=== PATIENT | female | born 1965 | race Caucasian/White ===

== ENCOUNTER 2016-12-17 17:58 | Emergency (ER) | payer OTHER ==
[2016-12-17 18:47] VITALS: BP 124/70
[2016-12-17] MEDS ORDERED: Morphine INJ* 2 MG/ML 1 ML SYRINGE IV ONE (19:02)
--- NOTE | 2016-12-25 16:30 | UC ---
Mandie Devlin Alfonso, scribed for Reji Chavarria MD on 12/17/16 at 1859 . Shoulder Pain HPI - HPI Summary HPI Summary: This patient is a 51 year old F presenting to [facility] accompanied by with a chief complaint of left shoulder pain since two days ago. The CC is described as throbbing. The patient rates the pain 10/10 in severity. Symptoms aggravated by movement and position. Symptoms alleviated by nothing. Patient reports left arm numbness and tingling. Patient denies fever, chills, and SOB. She denies known injury. Tobacco abuse disorder. She denies any PMHx. Patients medications reviewed this visit. Patients allergies reviewed this visit. - History of Current Complaint Chief Complaint: UCUpperExtremity Stated Complaint: SHOULDER INJURY Time Seen by Provider: 12/17/16 18:41 Hx Obtained From: Patient Onset/Duration: Sudden Onset, Lasting Days - 2, Still Present Timing: Constant Severity Initially: Severe Severity Currently: Severe Location Of Pain: Is Discrete @ - Left Pain Intensity: 10 Pain Scale Used: 0-10 Numeric Character: Throbbing Aggravating Factor(s): Movement - and position Alleviating Factor(s): Nothing Associated Signs And Symptoms: Positive: Numbness/Tingling - LUE - Allergies/Home Medications Allergies/Adverse Reactions: Allergies Allergy/AdvReac Type Severity Reaction Status Date / Time Tetracycline Allergy Difficulty Verified 12/17/16 20:09 Swallowing Home Medications: Home Medications Levothyroxine TAB* [Synthroid TAB*] 50 mcg PO DAILY 12/17/16 [History Confirmed 12/17/16] Sertraline* [Zoloft*] 100 mg PO DAILY 12/17/16 [History Confirmed 12/17/16] PMH/Surg Hx/FS Hx/Imm Hx Previously Healthy: Yes - Surgical History Surgical History: None - Family History Known Family History: Positive: Other - Ovarian and colon cancer. Epilepsy. - Social History Alcohol Use: Occasionally Substance Use Type: None Smoking Status (MU): Heavy Every Day Tobacco Smoker Review of Systems Constitutional: Other - Negative fever, chills Respiratory: Other - Negative SOB Musculoskeletal: Other: - left shoulder pain, left arm numbness and tingling All Other Systems Reviewed And Are Negative: Yes Physical Exam Triage Information Reviewed: Yes Vital Signs: Initial Vital Signs Temp 98.8 F 12/17/16 18:41 Pulse 64 12/17/16 18:41 Resp 20 12/17/16 18:41 BP 124/70 12/17/16 18:41 Pulse Ox 100 12/17/16 18:41 Vital Signs Reviewed: Yes ENT Exam: Normal Neck exam: Normal Respiratory Exam: Normal Cardiovascular: Positive: RRR, No Murmur Abdomen Description: Positive: Nontender Musculoskeletal: Positive: Strength Intact, No Edema, Other: - no deformity to the left shoulder, no swelling. Range of motion does not seem to make the shoulder pain worse. Neurological: Positive: Alert, Muscle Tone Normal, Other: - she complains of numbness to the left thumb area. Psychological: Positive: Normal Response To Family Skin: Negative: rashes Diagnostics - EKG Cardiac Rate: NL - BPM 61 Cardiac Rhythm: Sinus: Normal - 1858. No STEMI. Shoulder Course/Dx - Course Course Of Treatment: 51 yr old female with left shoulder pain that is not clearly reproducible. It may be musculoskeletal. Her EKG looks OK. She should go to the ER for her 10/10 pain. Morphine given. Discussed with Wale in the ER. - Differential Dx/Diagnosis Provider Diagnoses: left shoulder and neck pain. left thumb numbness. Discharge - Discharge Plan Condition: Good Disposition: TRANS HIGHER LVL OF CARE FAC Patient Education Materials: Shoulder Pain (ED) Referrals: Joanna Dougherty PA [Primary Care Provider] - The documentation as recorded by the Mandie cuellar Alfonso accurately reflects the service I personally performed and the decisions made by , Reji Chavarria MD.
== END 2016-12-17 19:34 | disposition short-term general hospital (02) ==
LOC: UCEAST 17:58
DX: M25.512 Pain in left shoulder (principal); M54.2 Cervicalgia; R20.0 Anesthesia of skin; Z88.1 Allergy status to other antibiotic agents; F17.210 Nicotine dependence, cigarettes, uncomplicated
CPT/HCPCS: 93005; 96374; 99213; G0463; J2270

== ENCOUNTER 2016-12-17 19:54 | Emergency (ER) | payer OTHER ==
[2016-12-17] MEDS ORDERED: Ketorolac INJ* 30 MG/ML 1 ML VIAL IV PUSH ONE (20:11)
[2016-12-17] MEDS ORDERED: LORazepam INJ* 2 MG/ML 1 ML VIAL IV PUSH ONE (20:11)
--- NOTE | 2016-12-17 20:36 | ED ---
Lavelle Devlin Rebecca, scribed for Phill Bauer MD on 12/17/16 at 2013 . Neck Pain - HPI Summary HPI Summary: Pt is a 51 y/o F BIBA from [facility] who presents to ED c/o L-sided neck pain with radiation to the LUE and down the back. Pain has been present for 2 days, beginning upon waking up on Wednesday. Pain is currently severe, ranked 9/10. Treated with Hydrocodone, muscle relaxers and Ibuprofen 800 mg NICKER AND BREAKER. Sx aggravated by nothing, alleviated slightly by morphine and is unchanged by breathing. Additionally c/o nausea which began after morphine administration and slight LUE tingling when she raises it. - History of Current Complaint Chief Complaint: EDNeckComplaint Stated Complaint: LT SHOULDER PAIN Time Seen by Provider: 12/17/16 20:00 Hx Obtained From: Patient Onset/Duration: Started days ago - 2 days ago, Still Present Severity Currently: Severe Pain Intensity: 9 Pain Scale Used: 0-10 Numeric Location: Discrete At: - L-side of the neck, Radiates To: - LUE and down the back Aggravating Factors: Nothing Alleviating Factors: Other: - Slightly by morphine - Allergies/Home Medications Allergies/Adverse Reactions: Allergies Allergy/AdvReac Type Severity Reaction Status Date / Time Tetracycline Allergy Difficulty Verified 12/17/16 20:09 Swallowing PMH/Surg Hx/FS Hx/Imm Hx Endocrine/Hematology History: Reports: Hx Thyroid Disease Denies: Hx Diabetes Cardiovascular History: Denies: Hx Hypertension Respiratory History: Denies: Hx Asthma, Hx Chronic Obstructive Pulmonary Disease (COPD) GI History: Denies: Hx Ulcer Infectious Disease History: Denies: Hx Clostridium Difficile, Hx Hepatitis, Hx Human Immunodeficiency Virus (HIV), Hx of Known/Suspected MRSA, Hx Shingles, Hx Tuberculosis, Hx Known/ Suspected VRE, Hx Known/Suspected VRSA, History Other Infectious Disease, Traveled Outside the [place] in Last 30 Days - Family History Known Family History: Positive: Other - Ovarian CA, colon CA - Social History Alcohol Use: Occasionally Substance Use Type: Reports: None Smoking Status (MU): Heavy Every Day Tobacco Smoker Review of Systems Positive: Nausea - s/p morphine administration Positive: Other - L-sided neck pain with radiation to the LUE and down the back Neurological: Other - LUE tingling when raised All Other Systems Reviewed And Are Negative: Yes Physical Exam Triage Information Reviewed: Yes Vital Signs On Initial Exam: Initial Vitals Temp Pulse Resp BP Pulse Ox 98.3 F 60 18 108/64 99 12/17/16 20:07 12/17/16 20:07 12/17/16 20:07 12/17/16 20:07 12/17/16 20:07 Vital Signs Reviewed: Yes Appearance: Positive: Well-Appearing, Pain Distress - mild discomfort Skin: Positive: Warm Head/Face: Positive: Normal Head/Face Inspection Eyes: Positive: DELMY ENT: Positive: Hearing grossly normal Neck: Positive: Supple, Other: - mild diffuse cervical spasm Respiratory/Lung Sounds: Positive: Clear to Auscultation, Breath Sounds Present Cardiovascular: Positive: RRR Abdomen Description: Positive: Nontender, Soft Bowel Sounds: Positive: Present Musculoskeletal: Positive: Strength/ROM Intact Neurological: Positive: Alert, Oriented to Person Place, Time Diagnostics - Vital Signs Vital Signs Temp Pulse Resp BP Pulse Ox 12/17/16 20:07 98.3 F 60 18 108/64 99 - Laboratory Lab Statement: Any lab studies that have been ordered have been reviewed, and results considered in the medical decision making process. - Radiology C-Spine XR Xray Interpretation: No Acute Changes Radiology Interpretation Completed By: ED Physician Re-Evaluation - Re-Evaluation Second Eval Change: Improved Neck Course/Dx - Course Assessment/Plan: Pt is a 51 y/o F BIBA from [facility] who presents to ED c/o L- sided neck pain with radiation to the LUE and down the back for 2 days, beginning upon waking up. Pain is currently severe, ranked 9/10. Treated with Hydrocodone, muscle relaxers and Ibuprofen 800 mg NICKER AND BREAKER. Sx alleviated slightly by morphine and is unchanged by breathing. Additionally c/o nausea which began after morphine administration and slight LUE tingling when she raises it. C- Spine XR is negative, as read by ED physician. In the ED course, pt received Zofran, Toradol, Dilaudid and Ativan. Pt will be D/C to home with Dx of cervical sprain with Rx for flexeril and motrin and a follow up with her PCP. She understands and agrees. - Diagnoses Provider Diagnoses: Cervical sprain Discharge - Discharge Plan Condition: Stable Disposition: HOME Prescriptions: Cyclobenzaprine TAB* [Flexeril 10 MG TAB*] 10 mg PO TID #20 tab Ibuprofen TAB* [Motrin TAB* 800 MG] 800 mg PO TID #30 tab Patient Education Materials: Cervical Sprain (ED) Referrals: Joanna Dougherty PA [Primary Care Provider] - 3 Days The documentation as recorded by the Lavelle cuellar Rebecca accurately reflects the service I personally performed and the decisions made by me, Phill Bauer MD.
[2016-12-17] MEDS ORDERED: Ondansetron INJ* 2 MG/ML VIAL IV ONE (21:03)
[2016-12-17] MEDS ORDERED: HYDROmorphone* 1 MG/ML 1 ML SYR IV SLOW PU ONE (22:44)
[2016-12-17] MEDS ORDERED: oxyCODONE/Acetamin 5/325 MG* TAB PO ONE (23:18)
[2016-12-17 23:31] VITALS: BP 122/79
--- NOTE | 2016-12-18 07:45 | RAD ---
INDICATION: Atraumatic neck pain. COMPARISON: Correlation is made with a prior MRI of the cervical spine from June 03, 2009 TECHNIQUE: 5 views of the cervical spine were obtained including lateral, oblique, AP, open-mouth odontoid views. FINDINGS: C1-C7 are visualized. There is straightening and reversal of the cervical spine with loss of the normal cervical lordosis. No prevertebral soft tissue swelling or fracture is seen. There are earrings which project over the C2 vertebra limiting the study. There is mild disc space narrowing and uncinate process spurring present at the C4-C5 and C5-C6 levels consistent with mild degenerative disc disease. IMPRESSION: 1. STRAIGHTENING AND REVERSAL OF THE NORMAL CERVICAL LORDOSIS. 2. MILD DEGENERATIVE DISC DISEASE. 3. SLIGHTLY LIMITED STUDY.
== END 2016-12-17 23:29 | disposition home or self-care (01) ==
LOC: ED 19:54
DX: S13.9XXA Sprain of joints and ligaments of unspecified parts of neck, initial encounter (principal); F17.200 Nicotine dependence, unspecified, uncomplicated; E07.9 Disorder of thyroid, unspecified; R11.0 Nausea; R20.2 Paresthesia of skin; X58.XXXA Exposure to other specified factors, initial encounter; Y92.9 Unspecified place or not applicable
CPT/HCPCS: 72050; 96374; 96375; 99282; A9270-GY; J1170; J1885; J2060; J2405

== ENCOUNTER 2019-01-21 10:58 | Emergency (ER) | payer MEDICAID, OTHER ==
[2019-01-21 11:54] VITALS: BP 90/67
--- NOTE | 2019-01-21 12:09 | UC ---
Dental HPI - HPI Summary HPI Summary: 53 year old female with PMH + for hypothyroidism, has not seen dr for year due to lack on insurance, presents with fatigue, right sided face pain, mild swelling internal mouth, no difficulty with swallowing, no fever, chills. Has not had thyroid medication in many months. No PCP - History of Current Complaint Chief Complaint: UCDentalProblem Stated Complaint: DENTAL COMPLAINT Time Seen by Provider: 01/21/19 11:52 Hx Obtained From: Patient ?: No Severity: Moderate Pain Intensity: 5 Pain Scale Used: 0-10 Numeric - Allergies/Home Medications Allergies/Adverse Reactions: Allergies Allergy/AdvReac Type Severity Reaction Status Date / Time Tetracyclines Allergy Severe Difficulty Verified 01/21/19 11:55 Swallowing PMH/Surg Hx/FS Hx/Imm Hx Previously Healthy: Yes - depression, hypothyroidism, fractured tooth - Surgical History Surgical History: None - Family History Known Family History: Positive: Other - Ovarian CA, colon CA, Non-Contributory - Social History Alcohol Use: Occasionally Substance Use Type: None Smoking Status (MU): Heavy Every Day Tobacco Smoker Review of Systems All Other Systems Reviewed And Are Negative: Yes Constitutional: Positive: Fatigue. Negative: Fever, Chills ENT: Positive: Dental Pain Psychological: Positive: Negative Is Patient Immunocompromised?: No Physical Exam Triage Information Reviewed: Yes Appearance: Well-Appearing, No Pain Distress, Well-Nourished Vital Signs: Initial Vital Signs Temp 99.1 F 01/21/19 11:51 Pulse 73 01/21/19 11:51 Resp 16 01/21/19 11:51 BP 90/67 01/21/19 11:51 Pulse Ox 100 01/21/19 11:51 Vital Signs Reviewed: Yes Eyes: Positive: Conjunctiva Clear ENT: Positive: Hearing grossly normal, Pharynx normal, TMs normal, Uvula midline. Negative: Tonsillar swelling, Tonsillar exudate, Sinus tenderness Dental: Positive: Gross Decay/Caries @, Dental Fracture @ - right upper with tenderness to palpation over lateral cheek. no fluctuant area, no abscess seen. minimal erythema.. Negative: Cellulitis @, Cervical Lymphadenopathy Neck: Positive: Supple, Nontender, No Lymphadenopathy. Negative: Nuchal Rigidity, Enlarged Nodes @ Respiratory: Positive: Chest non-tender, Lungs clear, Normal breath sounds, No respiratory distress, No accessory muscle use. Negative: Crackles, Rhonchi, Stridor, Wheezing Cardiovascular: Positive: RRR Psychological Exam: Normal Skin Exam: Normal Skin: Negative: Rashes Dental Complaint Course/Dx - Course Course Of Treatment: Toothache: - Antibiotics as directed - Go to ER with fever > 102, increased pain over jaw line, decreased ability to chew, increased swelling - Follow up with dentist for extraction - Differential Dx/Diagnosis Differential Diagnosis/Dx: Dental Abscess, Dental Caries, Fractured Tooth Provider Diagnosis: Toothache Discharge ED - Sign-Out/Discharge Documenting (check all that apply): Patient Departure All imaging exams completed and their final reports reviewed: No Studies - Discharge Plan Condition: Good Disposition: HOME Prescriptions: Penicillin VK 500 MG TAB(NF) [Penicillin VK 500 mg Tab] 500 mg PO QID #40 tab Patient Education Materials: Toothache (ED) Referrals: Joanna Dougherty PA [Primary Care Provider] - Additional Instructions: - Antibiotics as directed - Go to ER with fever > 102, increased pain over jaw line, decreased ability to chew, increased swelling - Follow up with dentist for extraction - Billing Disposition and Condition Condition: GOOD Disposition: Home
--- NOTE | 2019-01-22 13:10 | UC ---
- Progress Note Progress Note: Lab review today: TSH within normal limits Patient with hypothyroidism and has a been on any medication or testing due to insurance issues for a while Please inform the patient of her lab test results that thyroid testing was within normal limits and she should plan to see her president and chief executive officer/primary care doctor for further management. Course/Dx - Diagnoses Provider Diagnoses: Toothache Discharge ED - Sign-Out/Discharge Documenting (check all that apply): Post-Discharge Follow Up All imaging exams completed and their final reports reviewed: No Studies - Discharge Plan Condition: Good Disposition: HOME Prescriptions: Penicillin VK 500 MG TAB(NF) [Penicillin VK 500 mg Tab] 500 mg PO QID #40 tab Patient Education Materials: Toothache (ED) Referrals: Joanna Dougherty PA [Primary Care Provider] - Additional Instructions: - Antibiotics as directed - Go to ER with fever > 102, increased pain over jaw line, decreased ability to chew, increased swelling - Follow up with dentist for extraction - Billing Disposition and Condition Condition: GOOD Disposition: Home
== END 2019-01-21 12:38 | disposition home or self-care (01) ==
LOC: UCCORT 10:58
DX: K08.89 Other specified disorders of teeth and supporting structures (principal); R51 Headache; Z88.1 Allergy status to other antibiotic agents; F17.200 Nicotine dependence, unspecified, uncomplicated; R53.83 Other fatigue
CPT/HCPCS: 36415; 84443; 99212; G0463